=== PATIENT | female | born 1950 | race Caucasian/White ===

== ENCOUNTER 2017-07-06 08:45 | Day surgery (SDC) | payer MEDICARE, BC ==
[2017-07-06] MEDS ORDERED: BUPIVACAINE/EPI 0.5% 10 ML SOL INFIL ONE (10:10)
[2017-07-06] MEDS ORDERED: MIDAZOLAM 2 MG/2 ML SOL ONE (10:10)
[2017-07-06] MEDS ORDERED: DEXAMETHASONE SOD PHOS PF 10 MG/ML SOL IJ ONE (10:11)
[2017-07-06] MEDS ORDERED: LIDOCAINE HCL 1% 5 ML ONE (10:34)
[2017-07-06] MEDS ORDERED: PROPOFOL 10 MG/ML EMU IV ONE ×3 (10:34→11:42)
[2017-07-06] MEDS ORDERED: FENTANYL 100MCG/2ML SOL ONE ×2 (10:34→11:33)
[2017-07-06] MEDS ORDERED: HYDROMORPHONE 1 MG/ML SYRINGE ONE (10:43)
[2017-07-06] MEDS ORDERED: BUPIVACAINE HCL 0.5% MPF 10 ML SOL ONE (10:49)
[2017-07-06 13:32] VITALS: RESP 20; TEMP 97.4
[2017-07-06 14:33] VITALS: BP 119/66; PULSE 52; O2SAT 95
== END 2017-07-06 14:45 | disposition home health service (06) | DRG 563 ==
LOC: SURG 08:45
PROVIDERS: ATTEND Orthopaedic Surgery
DX: S66.211A Strain of extensor muscle, fascia and tendon of right thumb at wrist and hand level, initial encounter (principal)
CPT/HCPCS: J2250; J3010; A6402; J1100; J1170; J2704

== ENCOUNTER 2017-07-13 08:00 | Outpatient (CLI) | payer MEDICARE, BC ==
[2017-07-06 14:33] VITALS: O2SAT 95
== END 2017-07-13 08:01 | disposition home or self-care (01) | DRG 951 ==
LOC: CONVCARE 08:00
PROVIDERS: ATTEND Orthopaedic Surgery
DX: Z78.0 Asymptomatic menopausal state (principal)
CPT/HCPCS: 77080

== ENCOUNTER 2017-10-18 02:55 | Emergency (ER) | payer MEDICARE, BC ==
[2017-10-18 03:23] VITALS: BP 147/88; PULSE 79; RESP 20; TEMP 97.8; O2SAT 98
[2017-10-18] MEDS ORDERED: DEXAMETHASONE 20 MG/5 ML (4 MG/ML SOL) PO ONE (03:31)
[2017-10-18] MEDS ORDERED: DEXAMETHASONE 20 MG/5 ML (4 MG/ML SOL) ONE (03:32)
[2017-10-18] MEDS ORDERED: FLUCONAZOLE 150 MG TAB PO SCH (03:45)
== END 2017-10-18 03:55 | disposition home or self-care (01) | DRG 607 ==
LOC: ED 02:55
DX: L50.9 Urticaria, unspecified (principal); J02.9 Acute pharyngitis, unspecified
CPT/HCPCS: 99282; J1100

== ENCOUNTER 2017-10-22 06:35 | Emergency (ER) | payer MEDICARE, BC ==
[2017-10-22 06:45] VITALS: TEMP 97.6
[2017-10-22] MEDS ORDERED: SODIUM CHLORIDE 0.9% FLUSH 10 ML SOL IV PRN (06:58)
[2017-10-22] MEDS ORDERED: DIPHENHYDRAMINE 50 MG/ML SOL IV ONE (06:58)
[2017-10-22] MEDS ORDERED: DIPHENHYDRAMINE 50 MG/ML SOL ONE (07:01)
[2017-10-22 09:15] VITALS: BP 128/79; PULSE 70; RESP 16; O2SAT 99
== END 2017-10-22 09:10 | disposition home or self-care (01) | DRG 950 ==
LOC: ED 06:35
DX: T78.40XD Allergy, unspecified, subsequent encounter (principal); L50.9 Urticaria, unspecified
CPT/HCPCS: 99284; J1200